=== PATIENT | female | born 2000 | race Hispanic/Latino ===

== ENCOUNTER 2024-07-28 06:48 | Emergency (ER) | payer MEDICARE ==
[2024-07-28 06:55] VITALS: PULSE 74; RESP 16; TEMP 98; O2SAT 100
[2024-07-28] MEDS ORDERED: AMOX TR-K CLV1 EAC2 PO (07:34)
[2024-07-28] MEDS ORDERED: NAPROXEN250 MG PO (07:34)
== END 2024-07-28 07:50 | disposition home or self-care (01) ==
LOC: ER 06:53
DX: K08.89 Other specified disorders of teeth and supporting structures (principal); K02.9 Dental caries, unspecified
CPT/HCPCS: 99282